=== PATIENT | male | born 1960 | race Two or more races ===

== ENCOUNTER 2020-08-09 15:24 | Emergency (ER) | payer OTHER ==
[~2020-08-09] VITALS: Ht 172.7 cm; Wt 72.6 kg
[2020-08-09 15:42] VITALS: BP 102/64
--- NOTE | 2020-08-09 16:13 | NUR ---
Patient discharged to home in stable condition. Written and verbal after care instructions given. Patient verbalizes understanding of instruction.
== END 2020-08-09 16:13 | disposition home or self-care (01) ==
LOC: ER 15:39
DX: S01.21XA Laceration without foreign body of nose, initial encounter (principal); I10 Essential (primary) hypertension; Z88.0 Allergy status to penicillin; Z88.1 Allergy status to other antibiotic agents; W20.8XXA Other cause of strike by thrown, projected or falling object, initial encounter; Y93.89 Activity, other specified; Y92.89 Other specified places as the place of occurrence of the external cause; Y99.8 Other external cause status